=== PATIENT | male | born 1970 | race Caucasian/White ===

== ENCOUNTER → 2016-12-03 | Outpatient (CLI) | payer OTHER ==
--- NOTE | 2016-12-03 14:53 | XR ---
EXAMINATION TYPE: XR ankle complete LT DATE OF EXAM: 12/03/2016 2:44 PM COMPARISON: NONE HISTORY: Pain FINDINGS: Three views of the ankle demonstrate the ankle mortise to be intact and symmetric. The joint spaces are preserved. The osseous structures are intact. Soft tissue swelling noted. Calcaneal spurs ident ified. IMPRESSION: 1. No definite acute fracture or dislocation, if symptoms persist follow-up study in 7 to 10 days wou ld be suggested.
== END | disposition home or self-care (01) ==
LOC: RADXRMAIN 14:29
PROVIDERS: ATTEND Internal Medicine
DX: M25.572 Pain in left ankle and joints of left foot (principal)

== ENCOUNTER 2017-11-25 11:47 | Day surgery (SDC) | payer OTHER ==
[2017-11-21 15:04] VITALS: BMI 25.1
[~2017-11-25 11:47] MED LIST: LACTATED RINGERS 1,000 ML IV SCH; LIDOCAINE 1% 20 ML VIAL (10MG/ML) FOR IV START INTRADERMA PRN
[2017-11-25 12:08] VITALS: RESP 16; TEMP 97.8
[2017-11-25] MEDS ORDERED: LIDOCAINE 1% INJ 10MG/ML (20 ML MDV) ONE (12:13)
[2017-11-25] MEDS ORDERED: PROPOFOL 10 MG/ML 20 ML VIAL IV ONE (12:13)
--- NOTE | 2017-11-25 12:36 | P.PCN ---
Date of Procedure: 11/25/17 Procedure(s) Performed: Procedure: Esophagogastroduodenoscopy and biopsy. Preoperative diagnosis: Chronic reflux symptoms requiring therapy. Postoperative diagnosis: 1. Small sliding hiatal hernia with no obvious esophagitis or complicated reflux disease. 2. Mild antral gastritis. 3. Multiple biopsies obtained from the duodenum, antrum and esophagus. Preparation and sedation: Was provided by anesthesia. Brief clinical history: The patient is a 47-year-old male who is scheduled for this evaluation for chronic reflux symptoms requiring therapy. He has no alarm symptoms such as dysphagia, weight loss or bleeding. No history of anemia. This evaluation is to assess for esophagitis or complicated reflux disease or other pathology. Procedure: With the patient on his left lateral decubitus position and after informed consent and adequate sedation, I passed the Olympus-GIF 160 video upper endoscope through the cricopharyngeus down the esophagus. GE junction was irregular and was noted starting around 38 cm from the incisors and there was a small sliding hiatal hernia. There was no obvious esophagitis or complicated reflux disease. The endoscope was then passed into the stomach which was insufflated with air and inspected in detail including the retroflex view in the cardia. There was some mottling and erythema in the antrum but no ulcers or erosions. Pyloric channel, duodenal bulb, post bulbar area and descending duodenum appeared within normal limits. I obtained multiple biopsies from the duodenum, antrum and esophagus then the endoscope was withdrawn. The patient tolerated the procedure well. Plan: The patient was reassured. Will await pathology results. He will follow up with you as planned and further plans will be made based on his course and biopsy results. We will be happy to see in the office of his symptoms persist.
[2017-11-25 13:02] VITALS: BP 143/88; PULSE 70
== END 2017-11-25 13:16 | disposition home or self-care (01) ==
LOC: ORWHC2ENDO 11:47
DX: K29.50 Unspecified chronic gastritis without bleeding (principal); K21.0 Gastro-esophageal reflux disease with esophagitis; K44.9 Diaphragmatic hernia without obstruction or gangrene; E78.5 Hyperlipidemia, unspecified; J45.909 Unspecified asthma, uncomplicated; Z79.1 Long term (current) use of non-steroidal anti-inflammatories (NSAID); Z79.899 Other long term (current) drug therapy; Z88.5 Allergy status to narcotic agent
CPT/HCPCS: 88305; 88312; 43239; J2001; J2704

== ENCOUNTER → 2018-03-11 | Outpatient (CLI) | payer OTHER ==
--- NOTE | 2018-03-12 01:28 | MR ---
EXAMINATION TYPE: MR shoulder RT wo con DATE OF EXAM: 03/11/2018 COMPARISON: None HISTORY: Pain in right shoulder/Impingement TECHNIQUE: Multiplanar, multisequence imaging of the right shoulder is performed without contrast. FINDINGS: The subscapularis tendon is intact. There is a mild shoulder joint effusion. There is extensive incre ased signal and thickening of the supraspinatus tendon without retraction. There is moderate spurring at the AC joint and mild impingement on the supraspinatus muscle. There is narrowing of the glenohum eral joint space. The glenoid alexa appear intact. The biceps tendon appears intact. IMPRESSION: Mild osteoarthritis. Full-thickness tear of the supraspinatus tendon without retraction. Small should er joint effusion. Minimal subacromial impingement.
== END | disposition home or self-care (01) ==
LOC: RADMRIMAIN 16:33
PROVIDERS: ATTEND Orthopaedic Surgery Sports Medicine
DX: M19.011 Primary osteoarthritis, right shoulder (principal); M75.121 Complete rotator cuff tear or rupture of right shoulder, not specified as traumatic

== ENCOUNTER → 2018-08-25 | Outpatient (CLI) | payer OTHER | END | disposition home or self-care (01) | LOC: RADMRIMAIN 08:50 | PROVIDERS: ATTEND Orthopaedic Surgery Hand Surgery | DX: Z53.9 Procedure and treatment not carried out, unspecified reason (principal) ==

== ENCOUNTER → 2018-08-26 | Outpatient (CLI) | payer OTHER ==
--- NOTE | 2018-08-26 12:12 | MR ---
MR right elbow HISTORY: Right elbow pain, arthrosis Multiplanar multisequence imaging through the right elbow, no comparisons There is artifact on the exam. Elbow joint effusion is present. Multiple loose bodies are present wit hin the joint capsule. Normal tendon insertions are present, biceps tendon, triceps tendon are intact . Marginal spurring is present. There is grade 3 to grade IV chondromalacia within the joint. Calcifi cation is present along the conjoined extensor tendon origin with increased signal within the tendon suggesting tendinosis, irregularity noted at the level of the condyle is present. No fracture or disl ocation. Origin of the conjoined flexor tendon shows some increased signal possibly due to tendinosis . IMPRESSION: Osteoarthritis, calcific tendinitis, tendinosis as described. 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 Additional findings, limitations as described.
== END | disposition home or self-care (01) ==
LOC: RADMRIMAIN 08:51
PROVIDERS: ATTEND Orthopaedic Surgery Hand Surgery
DX: M19.021 Primary osteoarthritis, right elbow (principal); M65.221 Calcific tendinitis, right upper arm; M24.021 Loose body in right elbow

== ENCOUNTER 2018-11-02 16:55 | Emergency (ER) | payer OTHER ==
[2018-11-02 17:19] VITALS: RESP 18
[2018-11-02] MEDS ORDERED: IPRATROPIUM-ALBUTEROL 3 ML NEB INHALATION STA (17:31)
[2018-11-02] MEDS ORDERED: ACETAMINOPHEN TAB 500 MG TAB PO STA (17:31)
--- NOTE | 2018-11-02 18:36 | XR ---
EXAMINATION TYPE: XR chest 2V DATE OF EXAM: 11/02/2018 COMPARISON: NONE HISTORY: Cough and congestion TECHNIQUE: Frontal and lateral views of the chest are obtained. FINDINGS: Heart and mediastinum are normal. Lungs are clear. Diaphragm is normal. Bony thorax appear s normal. IMPRESSION: Normal chest.
--- NOTE | 2018-11-02 18:58 | ED ---
General Adult HPI - General Chief complaint: Upper Respiratory Infection Stated complaint: flu like symptoms Time Seen by Provider: 11/02/18 17:15 Source: patient, RN notes reviewed Mode of arrival: ambulatory Limitations: no limitations - History of Present Illness Initial comments: This is a 47-year-old male who presents emergency Department complaining of a cough over the last week. Patient states he was already on Zithromax from his primary medical care doctor. Patient states over the last couple of days he started having fever and continued to cough and short of breath. Patient states he felt as though he had a fever. Patient states she's got myalgias. Patient denies any chest pain or palpitations. Patient denies abdominal pain patient as nausea vomiting diarrhea. He - Related Data Home Medications Medication Instructions Recorded Confirmed Dextroamphetamine/Amphetamine 20 mg PO QAM 11/21/17 11/02/18 [Adderall Xr] Dextroamphetamine/Amphetamine 20 mg PO DAILY 11/21/17 11/02/18 [Adderall] Multivitamin,Therapeutic [Thera] 1 tab PO DAILY 11/02/18 11/02/18 Ranitidine HCl [Zantac] 150 mg PO DAILY PRN 11/02/18 11/02/18 Previous Rx's Medication Instructions Recorded Albuterol Inhaler [Ventolin Hfa 1 - 2 puff INHALATION Q6HR PRN #2 11/02/18 Inhaler] puff Amoxicillin/Potassium Clav 1 each PO Q12HR #20 tab 11/02/18 [Augmentin 875-125 Tablet] predniSONE 40 mg PO DAILY #8 tab 11/02/18 Allergies Allergy/AdvReac Type Severity Reaction Status Date / Time codeine Allergy Unknown Verified 11/02/18 17:39 Childhood Review of Systems ROS Statement: Those systems with pertinent positive or pertinent negative responses have been documented in the HPI. ROS Other: All systems not noted in ROS Statement are negative. Past Medical History Past Medical History: Asthma, GERD/Reflux, Hyperlipidemia Additional Past Medical History / Comment(s): PAST HX OF HYPERLIPIDEMIA, NO CURRENT MEDS History of Any Multi-Drug Resistant Organisms: None Reported Past Surgical History: No Surgical Hx Reported Additional Past Surgical History / Comment(s): EGD Past Anesthesia/Blood Transfusion Reactions: No Reported Reaction Past Psychological History: ADD/ADHD Smoking Status: Never smoker Past Alcohol Use History: Occasional Past Drug Use History: None Reported - Past Family History Father Family Medical History: Cancer Sister(s) Family Medical History: Cancer General Exam - General Exam Comments Initial Comments: GENERAL: Patient is well-developed and well-nourished. Patient is nontoxic and well- hydrated and is in mild distress. ENT: Neck is soft and supple. No significant lymphadenopathy is noted. Oropharynx is clear. Moist mucous membranes. Neck has full range of motion without eliciting any pain. EYES: The sclera were anicteric and conjunctiva were pink and moist. Extraocular movements were intact and pupils were equal round and reactive to light. Eyelids were unremarkable. PULMONARY: Unlabored respirations. Good breath sounds bilaterally. Patient has occasional expiratory wheeze particularly on the right side. CARDIOVASCULAR: There is a regular rate and rhythm without any murmurs gallops or rubs. ABDOMEN: Soft and nontender with normal bowel sounds. SKIN: Skin is clear with no lesions or rashes and otherwise unremarkable. NEUROLOGIC: Patient is alert and oriented x3. Cranial nerves II through XII are grossly intact. Motor and sensory are also intact. Normal speech, volume and content. Symmetrical smile. MUSCULOSKELETAL: Normal extremities with adequate strength and full range of motion. No lower extremity swelling or edema. No calf tenderness. LYMPHATICS: No significant lymphadenopathy is noted PSYCHIATRIC: Normal psychiatric evaluation. Limitations: no limitations Course Vital Signs 11/02/18 11/02/18 11/02/18 17:16 17:31 17:52 Temperature 99.4 F 100.2 F H Pulse Rate 111 H 110 H Respiratory 18 Rate Blood Pressure 117/72 O2 Sat by Pulse 97 Oximetry 11/02/18 18:04 Temperature Pulse Rate 108 H Respiratory Rate Blood Pressure O2 Sat by Pulse Oximetry Medical Decision Making - Medical Decision Making Chest x-ray shows no acute abnormality. Patient with a little better after albuterol treatment. I also gave the patient a shot of Rocephin and steroid and emergency department. I will be sending the patient home with antibiotics albuterol inhaler and steroids. - Lab Data Lab Results 11/02/18 Range/Units 17:44 Influenza Type A RNA Not Detected (Not Detectd) Influenza Type B (PCR) Not Detected (Not Detectd) Disposition Clinical Impression: Bronchospasm with bronchitis, acute Disposition: HOME SELF-CARE Condition: Good Prescriptions: Amoxicillin/Potassium Clav [Augmentin 875-125 Tablet] 1 each PO Q12HR #20 tab predniSONE 40 mg PO DAILY #8 tab Albuterol Inhaler [Ventolin Hfa Inhaler] 1 - 2 puff INHALATION Q6HR PRN #2 puff PRN Reason: Difficulty breathing Is patient prescribed a controlled substance at d/c from ED?: No Referrals: Enrrique Flores MD [Primary Care Provider] - 1-2 days Time of Disposition: 19:06
[2018-11-02] MEDS ORDERED: predniSONE 50 MG TAB PO STA (19:05)
[2018-11-02] MEDS: cefTRIAXone 1,000 MG VIAL (IM USE) IM STA ×2 (19:12→19:13)
[2018-11-02 19:29] VITALS: BP 140/94; PULSE 109; TEMP 99.4
== END 2018-11-02 19:28 | disposition home or self-care (01) ==
LOC: EC 16:55
DX: J20.9 Acute bronchitis, unspecified (principal); J45.909 Unspecified asthma, uncomplicated; F90.9 Attention-deficit hyperactivity disorder, unspecified type; Z79.899 Other long term (current) drug therapy; Z88.5 Allergy status to narcotic agent
CPT/HCPCS: 94640; 87502; 71046; 99284; 96372; J0696; J7512

== ENCOUNTER → 2020-12-02 | Outpatient (CLI) | payer OTHER ==
--- NOTE | 2020-12-02 19:19 | CT ---
EXAMINATION TYPE: CT sinus wo con DATE OF EXAM: 12/02/2020 COMPARISON: None HISTORY: chronic sinus congestion CT DLP: 440.7 mGycm. Automated Exposure Control for Dose Reduction was Utilized. TECHNIQUE: CT scan of the sinuses is performed without contrast, axial images are obtained, coronal r eformatted images are also reviewed. FINDINGS: Nasal septal deviation.. The ostiomeatal complex is patent bilaterally on the coronal imag es. Visualized portion of mastoid air cells show no abnormal opacification. The globes are intact bilate rally. IMPRESSION: 1. The sinuses are clear and the ostiomeatal complex is patent bilaterally. 2. Nasal septal deviation.
== END | disposition home or self-care (01) ==
LOC: RADCTMAIN 16:56
PROVIDERS: ATTEND Otolaryngology
DX: J34.2 Deviated nasal septum (principal)
CPT/HCPCS: 70486